=== PATIENT | male | born 1955 | race Caucasian/White ===

== ENCOUNTER → 2016-09-25 11:15 | Day surgery (SDC) | payer OTHER ==
[~2016-09-25 11:15] MED LIST: Acetaminophen TAB* 325 MG ONE; Buffered Lidocaine 1% SYR 3ML* 3 ML/SYR SYRINGE INTRADERM ONE; Dexamethasone IV* 4 MG/ML 1 ML (4 MG) ONE; EPHEDrine (Pressors)* 50 MG/ML VIAL ONE; Famotidine IV* 10 MG/ML 2 ML (20 mg) IV ONE; Famotidine IV* 10 MG/ML 2 ML (20 mg) ONE; Gelatin ADSORBABLE (OPHTH)* OPHTH.FILM ONE; Gelfoam 12-7 ADSORBABL SPONGE* 1 EA SPONGE ONE; Lidocaine 2% EPI 1:200000 MPF* 20 ML VIAL ONE; Lidocaine 2% PF * 5 ML VIAL ONE; Midazolam* 1 MG/ML 2 ML VIAL (2 MG) ONE; Ondansetron INJ* 2 MG/ML VIAL ONE; Oxymetazoline 0.05% NASAL SPR* 15 ML BTL ONE; Propofol* 10 MG/ML 20 ML BTL IV PUSH ONE; Succinylcholine* 20 MG/ML 10 ML VIAL ONE; fentaNYL* 50 MCG/ML 2 ML VIAL (100 MCG VIAL) IV PRN; fentaNYL* 50 MCG/ML 2 ML VIAL (100 MCG VIAL) ONE; oxyCODONE/Acetamin 5/325 MG* TAB PO PRN
[2016-09-25] MEDS: Dexamethasone IV* 4 MG/ML 1 ML (4 MG) IV SLOW PU ONE (13:48)
[2016-09-25 17:05] VITALS: BP 163/85
--- NOTE | 2016-09-26 08:34 | OP ---
DATE OF OPERATION: 09/25/16 - [facility] DATE OF : 59. SURGEON: Dr. Mandujano. ANESTHESIOLOGIST: Dr. Jackson. ANESTHESIA: General PRE-OP DIAGNOSIS: Chronic pansinusitis. POST-OP DIAGNOSIS: Chronic pansinusitis. OPERATIVE PROCEDURE: Bilateral video endoscopic maxillary antrostomy, bilateral anterior and posterior ethmoidectomy, bilateral sphenoid sinusotomy, bilateral frontal duct antrostomy. BRIEF HISTORY: This 61-year-old gentleman with a significant history of sinusitis, going of for about 6 months in spite of oral antibiotics, nasal steroids, and frequent use of nasal washes, continued to be symptomatic so much so that he was missing time for more. OPERATIVE PROCEDURE: The patient was taken to the operating room. General anesthetic was given, patient intubated. The nose was decongested with Eleuterio- Synephrine placed pledgets. 0-degree telescope, 30-degree telescope, microshaver and a balloon sinuplasty instruments were utilized. The x-rays were available and the CT scans were observed prior and intra-operatively. Initially, we infiltrated the nasal mucosa with 2% lidocaine with epinephrine into the uncinate region, into the middle turbinate region, and into the ethmoid region on both sides. I used a 0 degree wire guide for the balloon and identified the ostium of the sphenoid on both sides using guidewire, passing the balloon and infiltrating with 12 bar pressure. Antrostomy was created. Some thin amounts of mucoid material was suctioned from both antrum of the sphenoids on both sides. Once this was done, we switched over to the frontal guides and then infiltrated and advanced the guidewire to the frontal sinuses and expanded them to 12 bar pressure on both sides. I examined the antrum and it was clear off any significant mucosal disease. Hyperplastic mucosa of the ethmoid and uncinate process were then identified. Microshaver was used to remove the uncinate process on both sides. The antrostomy then enlarged using the microshaver and hyperplastic mucosa was shaved off from the antrum on the right side and some hyperplastic mucosa on the left side. Then I proceeded to do the ethmoidectomy , resecting out the ethmoid bulla and coursing posterior towards the skull base and superior to the nasofrontal ductal area and laterally towards the lamina papyracea. Once this was adequately done safely, the area was packed with Gelfilm and Gelfoam as a spacer between the middle turbinate and lateral nasal wall. The patient was then awakened, extubated and sent to recovery room in stable condition. Instrument and sponge counts correct. Blood loss approximately 100 cc. [id number]/[facility] #: [id number] MTDD
== END | disposition home or self-care (01) ==
LOC: OR 11:15
PROVIDERS: ATTEND Otolaryngology
PROC: 0NBF4ZZ Excision of Right Ethmoid Bone, Percutaneous Endoscopic Approach (ICD-10-PCS; 2016-09-25)
PROC: 099T4ZZ Drainage of Left Frontal Sinus, Percutaneous Endoscopic Approach (ICD-10-PCS; 2016-09-25)
PROC: 099Q4ZZ Drainage of Right Maxillary Sinus, Percutaneous Endoscopic Approach (ICD-10-PCS; 2016-09-25)
PROC: 099R4ZZ Drainage of Left Maxillary Sinus, Percutaneous Endoscopic Approach (ICD-10-PCS; 2016-09-25)
PROC: 099S4ZZ Drainage of Right Frontal Sinus, Percutaneous Endoscopic Approach (ICD-10-PCS; 2016-09-25)
PROC: 0NBG4ZZ Excision of Left Ethmoid Bone, Percutaneous Endoscopic Approach (ICD-10-PCS; principal; 2016-09-25 12:45)
DX: J32.9 Chronic sinusitis, unspecified (principal)
CPT/HCPCS: 88305; A9270-GY; J0330; J1100; J2250; J2405; J2704; J3010

== ENCOUNTER 2021-02-14 12:17 | Observation (INO) ==
[2021-02-14 15:50] LABS: ABS Eosinophils 0.1 10^3/ul (0-0.6); ABS Lymphocytes 1.1 10^3/ul (1.0-4.8); ABS Neutrophils 8.5 10^3/ul (1.5-7.7); Eosinophil % 0.9 %; Hematocrit 43 % (42-52); Hemoglobin 14.7 g/dL (14.0-18.0); Lymphocyte % 10.1 %; Mean Corpuscular HGB Conc 34 g/dL (31-36); Mean Corpuscular Hemoglobin 32 pg (27-31); Mean Corpuscular Volume 93 fL (80-94); Mean Platelet Volume 7.3 fL (7.4-10.4); Nucleated Red Blood Cells % 0.1; Platelet Count 245 10^3/uL (150-450); Red Cell Distribution Width 13 % (10-15); White Blood Count 10.8 10^3/uL (3.5-10.8)
[2021-02-14 16:05] LABS: Albumin 4.5 g/dL (3.2-5.2); Albumin/Globulin Ratio 1.4 (1-3); C Reactive Protein 65.98 mg/L (<8.01); Calcium 10.1 mg/dL (8.6-10.3); EGFR African American 101.8 (>60); EGFR Non-African American 84.1 (>60); Globulin 3.3 g/dL (2-4); Potassium 3.6 mmol/L (3.5-5.0); Total Bilirubin 0.4 mg/dL (0.2-1.0); Total Protein 7.8 g/dL (6.4-8.9)
[2021-02-14] MEDS ORDERED: cefTRIAXone 1 gm/50 mL NS BAG 1 GM/50 ML BAG IV ONE (16:40)
[2021-02-14] MEDS ORDERED: metroNIDAZOLE IV 500 MG/100ML 500 MG/100 ML BAG IVPB ONE (16:43)
[2021-02-14] MEDS ORDERED: Dextrose 50% Syringe 50 ml 25 GM/50 ML SYRINGE IV PUSH PRN (19:29)
[2021-02-14] MEDS ORDERED: Enoxaparin 40 MG/0.4 ML SYR SUBCUT SCH (20:00)
[2021-02-14] MEDS ORDERED: Hyoscyamine ER 0.375 mg (NF) TAB PO SCH (21:00)
[2021-02-14] MEDS ORDERED: Econazole 1% CREAM (NF) 1 TUBE TOPICAL SCH (21:00)
[2021-02-14] MEDS ORDERED: Zosyn per Pharmacy NOTE FOLLOW UP PRN (22:13)
[2021-02-14] MEDS ORDERED: ZOSYN 3.375 GM x ONE DOSE over 30 miuntes IV (23:00)
[2021-02-15 06:59] LABS: ABS Eosinophils 0.2 10^3/ul (0-0.6); ABS Lymphocytes 1.4 10^3/ul (1.0-4.8); ABS Monocytes 0.9 10^3/ul (0-0.8); ABS Neutrophils 6.4 10^3/ul (1.5-7.7); Eosinophil % 1.8 %; Hematocrit 40 % (42-52); Mean Corpuscular HGB Conc 35 g/dL (31-36); Mean Corpuscular Hemoglobin 32 pg (27-31); Mean Corpuscular Volume 93 fL (80-94); Mean Platelet Volume 7.4 fL (7.4-10.4); Platelet Count 231 10^3/uL (150-450); Red Blood Count 4.33 10^6 /uL (4.18-5.48); Red Cell Distribution Width 13 % (10-15)
[2021-02-15 07:09] LABS: C Reactive Protein 58.63 mg/L (<8.01); Calcium 9.4 mg/dL (8.6-10.3); EGFR African American 86.3 (>60); EGFR Non-African American 71.3 (>60); Potassium 3.5 mmol/L (3.5-5.0)
[2021-02-15] MEDS ORDERED: Piperacillin/Tazobac ADVAN 3.375 GM in NS 0.9% 100 ml BAG 100 ML IV SCH (12:30)
[2021-02-15] MEDS ORDERED: CMC:Alfuzosin ER 10 mg TAB.ER (NF) 10 MG TAB.ER PO SCH (14:00)
[2021-02-15 15:34] VITALS: BP 122/68
== END 2021-02-15 16:30 | disposition home or self-care (01) ==
LOC: ED 12:17 → EDHOLD 12:17 → SSU 02-15 13:50
PROVIDERS: ADMIT Internal Medicine; ATTEND Internal Medicine

== ENCOUNTER 2021-02-28 10:23 | Inpatient (IN) ==
[2021-02-28] MEDS ORDERED: Piperacillin/Tazobac ADVAN 3.375 GM in NS 0.9% 100 ml BAG 100 ML IV ONE (11:57)
[2021-02-28 13:03] LABS: INR 1.2 (0.86-1.15)
[2021-02-28 13:09] LABS: ABS Eosinophils 0.1 10^3/ul (0-0.6); ABS Lymphocytes 1.1 10^3/ul (1.0-4.8); ABS Monocytes 0.7 10^3/ul (0-0.8); ABS Neutrophils 7.5 10^3/ul (1.5-7.7); Eosinophil % 0.7 %; Hematocrit 40 % (42-52); Hemoglobin 14.2 g/dL (14.0-18.0); Lymphocyte % 11.7 %; Mean Corpuscular HGB Conc 35 g/dL (31-36); Mean Corpuscular Hemoglobin 32 pg (27-31); Mean Corpuscular Volume 92 fL (80-94); Platelet Count 272 10^3/uL (150-450); Red Cell Distribution Width 13 % (10-15); White Blood Count 9.3 10^3/uL (3.5-10.8)
[2021-02-28 13:12] LABS: Albumin 4.2 g/dL (3.2-5.2); Albumin/Globulin Ratio 1.3 (1-3); C Reactive Protein 16.89 mg/L (<8.01); Calcium 9.7 mg/dL (8.6-10.3); EGFR African American 105.8 (>60); EGFR Non-African American 87.5 (>60); Globulin 3.2 g/dL (2-4); Potassium 3.6 mmol/L (3.5-5.0); Total Bilirubin 0.4 mg/dL (0.2-1.0); Total Protein 7.4 g/dL (6.4-8.9)
[2021-02-28 13:37] LABS: Troponin I 0.01 ng/mL (<0.03)
[2021-02-28] MEDS ORDERED: Magnesium Hydroxide LIQ 30 ML UDC PO PRN (13:53)
[2021-02-28] MEDS ORDERED: Zosyn per Pharmacy NOTE FOLLOW UP SCH ×2 (14:00→17:00)
[2021-02-28] MEDS ORDERED: Dextrose 50% Syringe 50 ml 25 GM/50 ML SYRINGE IV PUSH PRN (14:07)
[2021-02-28] MEDS: Heparin 5000 UNITS/ML 1 mL VIAL SUBCUT SCH ×2 (15:28→21:59)
[2021-02-28 16:04] LABS: Rapid COVID-19 Molecular Undetected (Undetected)
[2021-02-28] MEDS ORDERED: fentaNYL 100 mcg/2 ml 50 MCG/ML VIAL IV PRN (17:31)
[2021-02-28] MEDS ORDERED: Metoclopramide 5 MG/ML VIAL (10 mg) IV PRN (17:31)
[2021-02-28] MEDS ORDERED: DiMENhydriNATE IV 50 mg/ml 1 ml VIAL IV PUSH ONE (17:31)
[2021-02-28] MEDS ORDERED: Ondansetron 4 mg VIAL 2 MG/ML 2 ml VIAL IV PRN (17:31)
[2021-02-28] MEDS ORDERED: Naloxone 0.4 mg VIAL 0.4 mg/ml 1 ml VIAL IV PRN (17:31)
[2021-02-28] MEDS ORDERED: Buffered Lidocaine 1% SYRIN 1 ml INTRADERM ONE (17:31)
[2021-02-28] MEDS ORDERED: HYDROcodone/ACETAMIN 5/325 mg TAB PO PRN (17:31)
[2021-02-28] MEDS ORDERED: Lactated Ringers 1000 ml BAG 1,000 ML IV SCH (18:00)
[2021-02-28] MEDS: ZOSYN 3.375 GM Q8H per EXTENDED INFUSION IV SCH (18:32)
[2021-02-28] MEDS ORDERED: Hyoscyamine ER 0.375 mg (NF) TAB PO SCH (21:00)
[2021-03-01] MEDS: ZOSYN 3.375 GM Q8H per EXTENDED INFUSION IV SCH ×3 (01:31→17:46)
[2021-03-01] MEDS ORDERED: NS 0.9% 1000 ml BAG 1,000 ML IV SCH ×2 (02:50→08:00)
[2021-03-01] MEDS: Heparin 5000 UNITS/ML 1 mL VIAL SUBCUT SCH ×3 (04:30→21:51)
[2021-03-01] MEDS ORDERED: DiMENhydriNATE IV 50 mg/ml 1 ml VIAL IV PUSH ONE (07:00)
[2021-03-01] MEDS ORDERED: Buffered Lidocaine 1% SYRIN 1 ml INTRADERM ONE (07:00)
[2021-03-01] MEDS ORDERED: Midazolam 2 mg/2 ml VIAL 1 mg/ml 2 ml VIAL (2 mg) ONE (08:17)
[2021-03-01] MEDS ORDERED: Bupivacaine 0.25% SDV 30 ML ONE (08:38)
[2021-03-01] MEDS ORDERED: Dexamethasone IV 4 MG/ML VIAL 1 ml VIAL ONE ×2 (08:44→08:45)
[2021-03-01] MEDS ORDERED: Ondansetron 4 mg VIAL 2 MG/ML 2 ml VIAL ONE (08:45)
[2021-03-01] MEDS ORDERED: CMC:Alfuzosin ER 10 mg TAB.ER (NF) 10 MG TAB.ER PO SCH (09:00)
[2021-03-01] MEDS ORDERED: Alfuzosin ER 10 mg TAB.ER (NF) 10 MG TAB.ER PO SCH (09:00)
[2021-03-01] MEDS ORDERED: Desflurane 240 ML INH ONE (09:39)
[2021-03-01] MEDS ORDERED: HYDROcodone/ACETAMIN 5/325 mg TAB PO PRN (10:15)
[2021-03-01] MEDS ORDERED: fentaNYL 100 mcg/2 ml 50 MCG/ML VIAL IV PRN (10:15)
[2021-03-01] MEDS ORDERED: Metoclopramide 5 MG/ML VIAL (10 mg) IV PRN (10:15)
[2021-03-01] MEDS ORDERED: Ondansetron 4 mg VIAL 2 MG/ML 2 ml VIAL IV PRN (10:15)
[2021-03-01] MEDS ORDERED: Naloxone 0.4 mg VIAL 0.4 mg/ml 1 ml VIAL IV PRN (10:15)
[2021-03-01] MEDS ORDERED: Tetan/Diph/Pertus SYR(Tdap) 0.5 ML SYR(BOOSTRIX) use SYR contains LATEX IM ONE (10:35)
[2021-03-01] MEDS: CMC:Alfuzosin ER 10 mg TAB.ER (NF) 10 MG TAB.ER PO SCH (21:51)
[2021-03-02] MEDS: ZOSYN 3.375 GM Q8H per EXTENDED INFUSION IV SCH ×3 (03:14→17:54)
[2021-03-02 06:06] LABS: ABS Eosinophils 0.1 10^3/ul (0-0.6); ABS Monocytes 0.7 10^3/ul (0-0.8); Eosinophil % 0.9 %; Hematocrit 37 % (42-52); Hemoglobin 12.8 g/dL (14.0-18.0); Lymphocyte % 25.8 %; Mean Corpuscular HGB Conc 35 g/dL (31-36); Mean Corpuscular Hemoglobin 32 pg (27-31); Mean Corpuscular Volume 92 fL (80-94); Mean Platelet Volume 7.2 fL (7.4-10.4); Platelet Count 246 10^3/uL (150-450); Red Blood Count 3.97 10^6 /uL (4.18-5.48); Red Cell Distribution Width 13 % (10-15); White Blood Count 7.9 10^3/uL (3.5-10.8)
[2021-03-02 06:16] LABS: C Reactive Protein 10.14 mg/L (<8.01); EGFR African American 89.3 (>60); EGFR Non-African American 73.8 (>60); Potassium 3.4 mmol/L (3.5-5.0)
[2021-03-02] MEDS: Heparin 5000 UNITS/ML 1 mL VIAL SUBCUT SCH ×3 (06:40→21:02)
[2021-03-02 09:31] LABS: Erythrocyte Sed Rate 26 mm/Hr (0-19)
[2021-03-02] MEDS: CMC:Alfuzosin ER 10 mg TAB.ER (NF) 10 MG TAB.ER PO SCH (21:01)
[2021-03-03] MEDS: ZOSYN 3.375 GM Q8H per EXTENDED INFUSION IV SCH ×2 (01:26→10:22)
[2021-03-03] MEDS: Heparin 5000 UNITS/ML 1 mL VIAL SUBCUT SCH ×2 (05:52→14:35)
[2021-03-03 06:19] LABS: ABS Eosinophils 0.1 10^3/ul (0-0.6); ABS Lymphocytes 1.8 10^3/ul (1.0-4.8); ABS Monocytes 0.6 10^3/ul (0-0.8); ABS Neutrophils 4.1 10^3/ul (1.5-7.7); Eosinophil % 2.1 %; Hematocrit 39 % (42-52); Hemoglobin 13.4 g/dL (14.0-18.0); Lymphocyte % 26.5 %; Mean Corpuscular HGB Conc 35 g/dL (31-36); Mean Corpuscular Hemoglobin 32 pg (27-31); Mean Corpuscular Volume 93 fL (80-94); Mean Platelet Volume 7.3 fL (7.4-10.4); Nucleated Red Blood Cells % 0.1; Platelet Count 242 10^3/uL (150-450); Red Blood Count 4.13 10^6 /uL (4.18-5.48); Red Cell Distribution Width 13 % (10-15); White Blood Count 6.6 10^3/uL (3.5-10.8)
[2021-03-03 06:29] LABS: C Reactive Protein 7.22 mg/L (<8.01); Calcium 9.1 mg/dL (8.6-10.3); EGFR African American 85.4 (>60); EGFR Non-African American 70.6 (>60); Potassium 3.4 mmol/L (3.5-5.0)
[2021-03-03 08:00] LABS: Magnesium 2.1 mg/dL (1.9-2.7)
[2021-03-03] MEDS ORDERED: Buffered Lidocaine 1% SYRIN 1 ml INTRADERM ONE (14:10)
[2021-03-03 16:00] VITALS: BP 119/69
[2021-03-03] MEDS ORDERED: cefTRIAXone 2 GM ADDV.VIAL 2 GM in NS 0.9% 100 ml BAG 100 ML IV SCH (18:00)
[2021-03-03 21:42] LABS: Erythrocyte Sed Rate 18 mm/Hr (0-19)
[2021-03-04 15:56] LABS: Tetanus Toxoid IgG Value >2.24 IU/mL
== END 2021-03-03 18:06 | disposition home or self-care (01) | DRG 514 ==
LOC: ED 10:23 → SSU 13:53 → ED 16:46
PROVIDERS: ADMIT Internal Medicine; ATTEND Internal Medicine